=== PATIENT | male | born 1980 | race Caucasian/White ===

== ENCOUNTER → 2017-01-12 | Outpatient (CLI) | payer OTHER | LOC: LAB 16:24 | DX: Z00.00 Encounter for general adult medical examination without abnormal findings (principal) ==

== ENCOUNTER → 2017-02-05 | Outpatient (CLI) | payer OTHER | LOC: CARDREHAB 11:35 | DX: R06.83 Snoring (principal); E66.9 Obesity, unspecified; Z68.33 Body mass index [BMI] 33.0-33.9, adult; R09.02 Hypoxemia; R53.83 Other fatigue; G47.10 Hypersomnia, unspecified | CPT/HCPCS: G0399 ==

== ENCOUNTER 2017-04-07 22:19 | Emergency (ER) | payer OTHER ==
[~2017-04-07] VITALS: Ht 180.3 cm; Wt 114.2 kg
[2017-04-07 23:04] LABS: HEMATOCRIT 48.2 % (42.0-52.0); HEMOGLOBIN 16.1 g/dL (13.5-18.0); MEAN CELL VOLUME 84 fl (78-100); MEAN CORPUSCULAR HEMOGLOBIN 28 pg (27-31); MEAN CORPUSCULAR HGB CONC 33 g/dL (33-37); MEAN PLATELET VOLUME 10.8 fl (7.4-10.4); PLATELET COUNT 285 K/mm3 (130-400); RED BLOOD COUNT 5.72 M/mm3 (4.20-5.60); RED CELL DISTRIBUTION WIDTH 13.6 % (11.5-14.5); WHITE BLOOD COUNT 12.9 K/mm3 (4.8-10.8)
[2017-04-07 23:08] LABS: ALBUMIN 4.1 g/dL (3.5-5.0); BUN/CREATININE RATIO 11.2 (6.0-26.0); CALCIUM 9.2 mg/dL (8.4-10.2); POTASSIUM 3.6 mmol/L (3.6-5.0); TOTAL BILIRUBIN 1.2 mg/dL (0.2-1.3); TOTAL PROTEIN 7.9 g/dL (6.3-8.2); URINE APPEARANCE CLEAR; URINE BILIRUBIN NEGATIVE (NEGATIVE); URINE BLOOD TRACE (NEGATIVE); URINE COLOR YELLOW; URINE GLUCOSE NEGATIVE (NEGATIVE); URINE KETONE NEGATIVE (NEGATIVE); URINE LEUKOCYTE ESTERASE NEGATIVE (NEGATIVE); URINE MUCUS PRESENT (NOT PRESENT); URINE NITRATE NEGATIVE (NEGATIVE); URINE PROTEIN(semi-quant) TRACE mg/dL (NEGATIVE); URINE UROBILINOGEN NORMAL (NORMAL); URINE WBC 0-1 /hpf (0-3)
[2017-04-07 23:13] LABS: LYMPHOCYTE 24 % (20-51); MONOCYTE 11 % (3-10); NEUTROPHILS 65 % (42-75)
[2017-04-07] MEDS ORDERED: SYNTHROID25 MCG PO (23:49)
[2017-04-08] MEDS ORDERED: DEPO-TESTOS200 MG/M1 IM (00:28)
[2017-04-08 01:43] VITALS: BP 132/88
[2017-04-09] MEDS ORDERED: CIPRO500 M1 PO (13:42)
[2017-04-09] MEDS ORDERED: KETOROLAC10 MG PO (13:42)
[2017-04-09] MEDS ORDERED: ZOFRAN ODT8 M1 PO (13:43)
== END 2017-04-08 01:38 | disposition home or self-care (01) ==
LOC: ED 22:19
PROVIDERS: Nurse Practitioner Family
DX: R10.13 Epigastric pain (principal); R11.0 Nausea; R19.7 Diarrhea, unspecified; E29.1 Testicular hypofunction; E07.9 Disorder of thyroid, unspecified; R63.0 Anorexia
CPT/HCPCS: J2270; J2405; J3490; J7030

== ENCOUNTER 2017-04-08 18:07 | Inpatient (IN) | payer OTHER ==
[~2017-04-08] VITALS: Ht 180.3 cm; Wt 113.2 kg
[~2017-04-08 18:07] MED LIST changes: -CIPRO500 M1 PO; -KETOROLAC10 MG PO; -ZOFRAN ODT8 M1 PO
[2017-04-08 18:17] VITALS: BP 144/93
[2017-04-08 19:07] VITALS: BP 144/93
[2017-04-08 19:13] VITALS: BP 144/93
[2017-04-08 19:18] LABS: EOS % 0.1 % (0.0-4.0); HEMATOCRIT 48.9 % (42.0-52.0); HEMOGLOBIN 16.4 g/dL (13.5-18.0); LYMPH# 1.7 (1.50-4.00); MEAN CELL VOLUME 85 fl (78-100); MEAN CORPUSCULAR HEMOGLOBIN 29 pg (27-31); MEAN CORPUSCULAR HGB CONC 34 g/dL (33-37); MEAN PLATELET VOLUME 10.7 fl (7.4-10.4); PLATELET COUNT 275 K/mm3 (130-400); RED BLOOD COUNT 5.75 M/mm3 (4.20-5.60); RED CELL DISTRIBUTION WIDTH 13.7 % (11.5-14.5); WHITE BLOOD COUNT 13.2 K/mm3 (4.8-10.8)
[2017-04-08 19:31] LABS: ALBUMIN 4.2 g/dL (3.5-5.0); BUN/CREATININE RATIO 9.3 (6.0-26.0); CALCIUM 9.1 mg/dL (8.4-10.2); POTASSIUM 4.1 mmol/L (3.6-5.0); TOTAL BILIRUBIN 1.1 mg/dL (0.2-1.3)
[2017-04-08 19:32] LABS: NEU # 10.4 (1.40-6.50)
[2017-04-08 22:53] VITALS: BP 126/63
[2017-04-09 02:41] VITALS: BP 111/71
[2017-04-09 06:22] VITALS: BP 106/66
[2017-04-09 11:13] VITALS: BP 105/66
[2017-04-09] MEDS ORDERED: CIPRO500 M1 PO (13:42)
[2017-04-09] MEDS ORDERED: KETOROLAC10 MG PO (13:42)
[2017-04-09] MEDS ORDERED: ZOFRAN ODT8 M1 PO (13:43)
[2017-04-09 13:51] VITALS: BP 110/80
== END 2017-04-09 13:57 | disposition home or self-care (01) | DRG 641 ==
LOC: MED/SURG 18:07
PROVIDERS: ADMIT Nurse Practitioner Primary Care
DX: E86.0 Dehydration (principal); K52.9 Noninfective gastroenteritis and colitis, unspecified; E03.9 Hypothyroidism, unspecified; E78.2 Mixed hyperlipidemia
CPT/HCPCS: C9113; J0744; J1885; J2270; J2405; J3490; J7030

== ENCOUNTER → 2017-04-08 | Outpatient (CLI) | payer OTHER ==
[~2017-04-08] MED LIST: CIPRO500 M1 PO; DEPO-TESTOS200 MG/M1 IM; KETOROLAC10 MG PO; SYNTHROID25 MCG PO; ZOFRAN ODT8 M1 PO
[2017-04-08 01:43] VITALS: BP 132/88
== END ==
LOC: RAD 13:20
DX: R10.13 Epigastric pain (principal); R93.3 Abnormal findings on diagnostic imaging of other parts of digestive tract
CPT/HCPCS: Q9967

== ENCOUNTER 2021-03-08 01:44 | Emergency (ER) | payer OTHER ==
[~2021-03-08] VITALS: Ht 177.8 cm; Wt 106.8 kg
[~2021-03-08 01:44] MED LIST changes: +CIPRO500 M1 PO; +KETOROLAC10 MG PO; +ZOFRAN ODT8 M1 PO
[2021-03-08] MEDS ORDERED: SYNTHROID RP0.1 MG PO (01:59)
[2021-03-08] MEDS ORDERED: ZOFRAN ODT4 MG PO (02:49)
[2021-03-08] MEDS ORDERED: PREDNISONE20 MG PO (02:49)
[2021-03-08 04:03] VITALS: BP 105/64
== END 2021-03-08 04:03 | disposition home or self-care (01) ==
LOC: ED 01:44
DX: U07.1 COVID-19 (principal); J12.82 Pneumonia due to coronavirus disease 2019; R09.02 Hypoxemia; E86.0 Dehydration
CPT/HCPCS: J2405; J7030

== ENCOUNTER 2021-03-10 17:30 | Emergency (ER) | payer OTHER ==
[~2021-03-10 17:30] MED LIST changes: +PREDNISONE20 MG PO; +SYNTHROID RP0.1 MG PO; +ZOFRAN ODT4 MG PO
[2021-03-10 18:13] LABS: HEMOGLOBIN 15.8 g/dL (13.5-18.0); LYMPH# 1.08 K/mm3 (1.50-4.00); MEAN CELL VOLUME 86 fl (78-100); MEAN CORPUSCULAR HEMOGLOBIN 29 pg (27-31); MEAN CORPUSCULAR HGB CONC 34 g/dL (33-37); MEAN PLATELET VOLUME 10.4 fl (7.4-10.4); MONO # 0.45 K/mm3 (0.20-0.80); PLATELET COUNT 175 K/mm3 (130-400); RED BLOOD COUNT 5.38 M/mm3 (4.20-5.60); RED CELL DISTRIBUTION WIDTH 12.4 % (11.5-14.5); WHITE BLOOD COUNT 8.8 K/mm3 (4.8-10.8)
[2021-03-10 18:25] LABS: ALBUMIN 3.5 g/dL (3.5-5.0)
[2021-03-10 18:26] LABS: POTASSIUM 3.7 mmol/L (3.5-5.1)
[2021-03-10 18:27] LABS: CALCIUM 8.4 mg/dL (8.3-10.5)
[2021-03-10 18:28] LABS: TOTAL PROTEIN 7.1 g/dL (6.4-8.3)
[2021-03-10 18:30] LABS: TOTAL BILIRUBIN 0.7 mg/dL (0.2-1.2)
[2021-03-11 01:28] LABS: URINE APPEARANCE HAZY; URINE COLOR ORANGE
[2021-03-11 01:29] LABS: URINE BILIRUBIN 1+ (NEGATIVE); URINE BLOOD 250 ery/uL (NEGATIVE); URINE GLUCOSE NEGATIVE (NEGATIVE); URINE KETONE 2+ (NEGATIVE); URINE LEUKOCYTE ESTERASE NEGATIVE (NEGATIVE); URINE MUCUS PRESENT (NOT PRESENT); URINE NITRATE NEGATIVE (NEGATIVE); URINE PROTEIN(semi-quant) 3+ mg/dL (NEGATIVE); URINE UROBILINOGEN 1 mg/dL (NORMAL)
[2021-03-11 07:36] LABS: BASO # 0.01 K/mm3 (0.02-0.10); HEMATOCRIT 46.5 % (42.0-52.0); HEMOGLOBIN 15.6 g/dL (13.5-18.0); LYMPH# 1.21 K/mm3 (1.50-4.00); MEAN CELL VOLUME 87 fl (78-100); MEAN CORPUSCULAR HEMOGLOBIN 29 pg (27-31); MEAN CORPUSCULAR HGB CONC 34 g/dL (33-37); MEAN PLATELET VOLUME 9.8 fl (7.4-10.4); MONO # 0.71 K/mm3 (0.20-0.80); NEU # 8.17 K/mm3 (1.40-6.50); PLATELET COUNT 210 K/mm3 (130-400); RED BLOOD COUNT 5.34 M/mm3 (4.20-5.60); RED CELL DISTRIBUTION WIDTH 12.6 % (11.5-14.5); WHITE BLOOD COUNT 10.2 K/mm3 (4.8-10.8)
[2021-03-11 07:46] LABS: POTASSIUM 3.6 mmol/L (3.5-5.1)
[2021-03-11 07:47] LABS: CALCIUM 8.4 mg/dL (8.3-10.5)
[2021-03-11 11:15] VITALS: BP 134/85
== END 2021-03-11 11:15 | disposition short-term general hospital (02) ==
LOC: ED 17:30
PROVIDERS: Family Medicine
DX: U07.1 COVID-19 (principal); J12.82 Pneumonia due to coronavirus disease 2019; R09.02 Hypoxemia
CPT/HCPCS: J1100; J1650

== ENCOUNTER 2021-05-21 12:56 | Outpatient (RCR) | payer OTHER | END 2021-05-27 | disposition home or self-care (01) | LOC: PT | DX: J12.82 Pneumonia due to coronavirus disease 2019 (principal); G72.9 Myopathy, unspecified ==

== ENCOUNTER 2021-05-29 13:40 | Outpatient (RCR) | payer OTHER | END 2021-06-27 | disposition still patient (30) | LOC: PT | DX: G72.9 Myopathy, unspecified (principal); U07.1 COVID-19; J12.82 Pneumonia due to coronavirus disease 2019 ==

== ENCOUNTER → 2021-06-05 | Outpatient (CLI) | payer OTHER ==
[2021-06-05 17:05] LABS: BASO # 0.04 K/mm3 (0.02-0.10); EOS # 0.15 K/mm3 (0.04-0.40); EOS % 1.4 % (0.0-4.0); HEMATOCRIT 46.4 % (42.0-52.0); HEMOGLOBIN 15.2 g/dL (13.5-18.0); LYMPH# 3.45 K/mm3 (1.50-4.00); MEAN CELL VOLUME 87 fl (78-100); MEAN CORPUSCULAR HEMOGLOBIN 29 pg (27-31); MEAN CORPUSCULAR HGB CONC 33 g/dL (33-37); MEAN PLATELET VOLUME 9.3 fl (7.4-10.4); MONO # 1.31 K/mm3 (0.20-0.80); NEU # 5.92 K/mm3 (1.40-6.50); PLATELET COUNT 315 K/mm3 (130-400); RED BLOOD COUNT 5.33 M/mm3 (4.20-5.60); RED CELL DISTRIBUTION WIDTH 15.3 % (11.5-14.5); WHITE BLOOD COUNT 10.9 K/mm3 (4.8-10.8)
[2021-06-05 17:21] LABS: ALBUMIN 4.2 g/dL (3.5-5.0); POTASSIUM 3.8 mmol/L (3.5-5.1)
[2021-06-05 17:22] LABS: CALCIUM 10.4 mg/dL (8.3-10.5)
[2021-06-05 17:24] LABS: TOTAL PROTEIN 7.4 g/dL (6.4-8.3)
[2021-06-05 17:25] LABS: TOTAL BILIRUBIN 0.8 mg/dL (0.2-1.2)
[2021-06-05 18:01] LABS: D-DIMER 0.24 mg/L FEU (0.15-0.50)
== END ==
LOC: LAB 16:22 → AMSURD 16:22
PROVIDERS: Nurse Practitioner Family
DX: U07.1 COVID-19 (principal)

== ENCOUNTER 2021-06-28 10:54 | Outpatient (RCR) | payer OTHER | END 2021-07-27 | disposition home or self-care (01) | LOC: PT | DX: G72.81 Critical illness myopathy (principal); J12.82 Pneumonia due to coronavirus disease 2019 ==

== ENCOUNTER 2021-07-29 13:00 | Outpatient (RCR) | payer OTHER | END 2021-08-27 | disposition home or self-care (01) | LOC: PT | DX: U07.1 COVID-19 (principal); J12.82 Pneumonia due to coronavirus disease 2019 ==

== ENCOUNTER 2021-08-29 13:00 | Outpatient (RCR) | payer OTHER | END 2021-09-26 | disposition home or self-care (01) | LOC: PT | DX: G72.81 Critical illness myopathy (principal) ==

== ENCOUNTER 2021-09-27 13:30 | Outpatient (RCR) | payer OTHER | END 2021-10-14 17:00 | disposition home or self-care (01) | LOC: PT 13:30 | DX: G72.9 Myopathy, unspecified (principal); J18.9 Pneumonia, unspecified organism; U09.9 Post COVID-19 condition, unspecified ==